=== PATIENT | female | born 1985 | race Caucasian/White ===

== ENCOUNTER 2024-11-09 14:50 | Outpatient (AMB) | payer OTHER, SELFPAY ==
[2024-11-09 15:04] VITALS: BP 148/96; PULSE 101; RESP 16; TEMP 37.2; O2SAT 97; BMI 50.0
--- NOTE | 2024-11-09 15:04 | MHC.PC.OV ---
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 ?? Prior PCP:?Connie Gómez Last office visit/CPE:? about 1 yr Acute issue(s):? HTN Lipoma L arm Hearing Rectal Prolapse ?? PMHx:? HTN, Syncope 2017 SurgHx:? Tonsils, Adenoids, TM Tubes FHx:? Mom: DM2, HTN, Renal Failure, Thyroid CA. Dad: HTN, OA SocHx: Nonsmoker, EtOH 1-2 dr 1-2 x a month. No drugs HPI Comments History of Present Illness Details Documentation assistance for Brennan Rivera MD, was provided by Nahun Cox,? Plate Maker [employer] on 11/09/2024 at 3:30 PM EST. I, Dr. Rivera, have read, observed, and verified documentation. ? 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 1. Little interest or pleasure in doing things: not at all 2. Feeling down, depressed, or hopeless: not at all 3. Trouble falling or staying asleep, or sleeping too much: not at all 4. Feeling tired or having little energy: not at all 5. Poor appetite or overeating: not at all 6. Feeling bad about yourself - or that you are a failure or have let yourself or your family down: not at all 7. Trouble concentrating on things, such as reading the newspaper or watching television: not at all 8. Moving or speaking so slowly that other people could have noticed. Or the opposite - being so fidgety or restless that you have been moving around a lot more than usual: not at all 9. Thoughts that you would be better off or of hurting yourself in some way: not at all Total score: 0 Depression Screening Interpretation: Negative Depression Screening Done: Yes 04366 - PHQ-9 Billing: Yes Source: Developed by Drs. Ehsan Garcia, Keyanna Foote, Aneudy Nolasco and colleagues, with an educational marcos from [employer]. Thrive Questionnaire I am a: Patient What is your living situation today?: I have a steady place to live Within the past 12 months, did the food you bought not last and you didn't have the money to get more?: Never true Within the past 12 months, did you worry whether your food would run out before you got money to buy more?: Never true Do you have trouble paying for medicines?: No Do you have trouble getting transportation to medical appointments?: No Do you have trouble paying your heating and electricity bill?: No Do you have trouble taking care of your child, family member or friend?: No Do you have trouble with day-to-day activities such as bathing, preparing meals, shopping, managing finances, etc.?: No Are you currently unemployed and looking for a job?: No Are you interested in more education?: No Please select the resources that you would like help with: None Currently or been in a relationship where the following occur: No concerns reported THRIVE Score: 0 AUDIT C Alcohol Use Questionnaire (AUDIT-C) 1. How often do you have a drink containing alcohol?: 2-4 times a month 2. How many drinks containing alcohol do you have on a typical day when you are drinking?: 1 or 2 3. How often do you have six or more drinks on one occasion?: Never Total Score: 2 MOOK-7 AMB Questionnaire MOOK-7 Feeling nervous, anxious, or on edge: 1 = Several days Not being able to stop or control worryin = Not at all Worrying too much about different things: 1 = Several days Trouble relaxin = Not at all Being so restless that it is hard to sit still: 0 = Not at all Becoming easily annoyed or irritable: 0 = Not at all Feeling afraid as if something awful might happen: 0 = Not at all Total MOOK-7 score (0-4 normal; 5-9 mild; 10-14 moderate; 15-21 severe): 2 Source: Developed by Drs. Ehsan Garcia, Keyanna Foote, Aneudy Nolasco and colleagues, with an educational marcos from [employer]. Review of Systems Const Denies chills, Denies fatigue, Denies fever(s), Denies headache(s) and Denies weakness ENT Denies dizziness and Denies headache(s) Card Denies chest pain, Denies lightheadedness, Denies dyspnea and Denies other (Palpitations) Resp Denies cough, Denies dyspnea, Denies wheezing and Denies other ( shortness of breath) Musc Denies numbness and Denies tingling Neuro Denies dizziness, Denies headache(s), Denies numbness, Denies tingling, Denies paresthesias and Denies weakness Psych Denies anxiety and Denies depression Endo Denies fatigue Aller/Immun Denies wheezing Physical exam (Primary Care) Vital Signs: Last Vital Signs Temp 99 F 11/09/24 15:04 Pulse 101 H 11/09/24 15:04 Resp 16 11/09/24 15:04 BP 144/86 H 11/09/24 15:17 Pulse Ox 97 11/09/24 15:04 Oxygen Delivery Method Room Air 11/09/24 15:04 BMI result Body Mass Index 50.0 Tobacco/Smoking Status: Tobacco use Status Tobacco use date assessed 11/09/24 11/09/24 15:09 Patient Tobacco Use Status Former Tobacco user (just 11/09/24 15:09 tried it in teen years) e-Cigarette/Vaping Use Never Used 11/09/24 15:09 PHQ-9: PHQ-9 Score PHQ-9: Total score 0 11/09/24 15:29 Depression Screening Interpretation: Negative Currently or been in a relationship where the following occur: No concerns reported Const General: no acute distress and well developed Nutritional Appearance: well nourished and obese morbidly obese Orientation/consciousness: patient oriented x3 HENMT Head: Yes normocephalic and Yes atraumatic Eyes General: appearance normal, both eyes and all related structures Pupils: Equal, round and reactive pupils present EOM: EOMs intact bilaterally Resp Effort & Inspection: normal respiratory effort Auscultation: clear to auscultation bilaterally Cardio Rate: regular rate Rhythm: regular rhythm Heart sounds: S1 normal heart sound present, S2 normal heart sound present, no gallops, no murmurs and no rubs Neuro General: patient oriented x3 and gait normal Cranial nerves: Yes Equal, round and reactive pupils present Extrem Other: 12 cm in diameter lipoma on her distal L upper arm Psych Affect: normal affect Coding Level of Care Code New Pt Level 3 (81286) Diagnoses Hypertension I10 Morbid obesity E66.01 Difficulty sleeping G47.9 Lipoma of arm D17.20 Change in hearing H91.90 History of syncope Z87.898 Screening for cervical cancer Z12.4 Rectal prolapse K62.3 Laboratory exam ordered as part of routine general medical examination Z00.00 Additional Codes PHQ-9 - 59254 - PHQ-9 Billing: Yes ([id number]) Assessment & Plan Assessment & Plan (1) Hypertension: Code(s): I10 - Essential (primary) hypertension Category: Medical Plan: Blood pressure is too high. Goal is less than 140/90 Increased her amlodipine from 5 mg daily to daily (2) Morbid obesity: Code(s): E66.01 - Morbid (severe) obesity due to excess calories Category: Medical Plan: Will monitor and adress at subsequent visit (3) Difficulty sleeping: Code(s): G47.9 - Sleep disorder, unspecified Category: Medical Plan: No significant symptoms consistent with sleep apnea We can follow-up on this at her next visit (4) Lipoma of arm: Code(s): D17.20 - Benign lipomatous neoplasm of skin and subcutaneous tissue of unspecified limb Category: Medical Plan: Large lipoma affecting range of motion of left arm and getting irritated Will refer to surgery (5) Change in hearing: Code(s): H91.90 - Unspecified hearing loss, unspecified ear Category: Medical Plan: Patient declines referral to audiology She will let me know if hearing worsens (6) History of syncope: Code(s): Z87.898 - Personal history of other specified conditions Category: Medical Plan: History of syncopal event in 2017. No further events Likely vasovagal She will know if anything like this occurs (7) Screening for cervical cancer: Code(s): Z12.4 - Encounter for screening for malignant neoplasm of cervix Category: Medical Plan: Referred to park interpretive ranger (8) Rectal prolapse: Code(s): K62.3 - Rectal prolapse Category: Medical Plan: Referred to GI (9) Laboratory exam ordered as part of routine general medical examination: Code(s): Z00.00 - Encounter for general adult medical examination without abnormal findings Category: Medical Plan: Check labs Orders: Orders Lipid Panel Today Z00.00 - Encounter for general adult medical examination without abnormal findings TSH reflex Free T4 Today Z00.00 - Encounter for general adult medical examination without abnormal findings Comprehensive [place]. Panel Fast Today Z00.00 - Encounter for general adult medical examination without abnormal findings Complete Blood Count Auto Diff Today Z00.00 - Encounter for general adult medical examination without abnormal findings Microalbumin, Random (w Creat) Today I10 - Essential (primary) hypertension UA CC w/rflx Micro + Cult Today Z00.00 - Encounter for general adult medical examination without abnormal findings Hemoglobin A1c Today R73.01 - Impaired fasting glucose Referrals BUILDING OPERATOR Referral Z12.4 - Encounter for screening for malignant neoplasm of cervix Colon & Rectal Referral K62.3 - Rectal prolapse General Surgery Referral D17.20 - Benign lipomatous neoplasm of skin and subcutaneous tissue of unspecified limb Medications: New amlodipine 10 mg PO DAILY 90 tabs 2RF 90 days
[2024-11-09 15:17] VITALS: BP 144/86
== END 2024-11-09 15:45 | disposition home or self-care (01) ==
LOC: HO.HMCFM 14:51
PROVIDERS: PCP Family Medicine; Visit Provider Family Medicine
DX: I10 Essential (primary) hypertension (principal); E66.01 Morbid (severe) obesity due to excess calories; Z68.43 Body mass index [BMI] 50.0-59.9, adult; G47.9 Sleep disorder, unspecified; D17.20 Benign lipomatous neoplasm of skin and subcutaneous tissue of unspecified limb; Z87.898 Personal history of other specified conditions; K62.3 Rectal prolapse

== ENCOUNTER → 2024-11-09 14:50 | Outpatient (BNVA) | payer OTHER, SELFPAY | PROVIDERS: PCP Family Medicine; Visit Provider Family Medicine | DX: Z00.00 Encounter for general adult medical examination without abnormal findings (principal); I10 Essential (primary) hypertension; E66.01 Morbid (severe) obesity due to excess calories; D17.20 Benign lipomatous neoplasm of skin and subcutaneous tissue of unspecified limb; H91.90 Unspecified hearing loss, unspecified ear; K62.3 Rectal prolapse; R73.01 Impaired fasting glucose; Z68.43 Body mass index [BMI] 50.0-59.9, adult; Z87.898 Personal history of other specified conditions | CPT/HCPCS: 96127 ==

== ENCOUNTER 2024-12-16 15:06 | Outpatient (AMB) | payer OTHER, SELFPAY ==
--- NOTE | 2024-12-16 15:08 | MHC.OFFVIS ---
Vital Signs 12/16/24 15:15 Height 5 ft 9 in Weight 353 lb BMI 52.1 BP 147/86 H Blood Pressure Location Rt radial Position Sitting Pulse 117 H Intake Visit Reasons: Large Lipoma L arm Intake Note: Patient referred by pcp Dr. Rivera for evaluation and treatment of lipoma on Left arm. Present for 2yrs. Patient c/o: enalrging, tender when pushed. Hand Touch Up Painter Required: No Accompanied by: Self / Same As Patient Allergies No Known Allergies Allergy (Verified 12/16/24 15:12) Medication List - Last Reconciled 12/16/24 by Justyn Kaur MD amlodipine 10 mg PO DAILY 90 days HPI HPI Large Lipoma L arm: Details: [age] year old female referred for a lipoma on the left arm. She says that she has noticed this for about 5 years now. This has been increasing in size. This has been bothering her a lot now because of the large size. She wants this removed. She has known hypertension morbid obesity. 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 Current occupational exposures/hazards: No Cognitive needs: No Hearing needs: No Vision needs: Yes (glasses) Review of Systems Const Denies chills and Denies fever(s) Card Denies chest pain, Denies dyspnea and Denies dyspnea on exertion Resp Denies cough, Denies dyspnea and Denies dyspnea on exertion GI Denies hematochezia and Denies change in bowel habits Denies hematuria Musc Denies back pain and Denies limited range of motion Neuro Denies focal weakness and Denies convulsions Psych Denies depression and Denies mood swings Physical Exam Vital Signs: Last Vital Signs Pulse 117 H 12/16/24 15:15 BP 147/86 H 12/16/24 15:15 BMI result Body Mass Index 52.1 Const General: comfortable and no acute distress Nutritional Appearance: obese Orientation/consciousness: patient oriented x3 Neck Neck: Yes no lymphadenopathy Resp Auscultation: clear to auscultation bilaterally Cardio Rhythm: regular rhythm GI Palpation (GI): Soft to palpation, nontender and no guarding Neuro General: patient oriented x3 Extrem Other: Left upper arm near popliteal fossa -- large lipomatous mass about 12 cm in size, well-defined, soft, with no skin changes Assessment & Plan Assessment & Plan (1) Lipoma of arm: Code(s): D17.20 - Benign lipomatous neoplasm of skin and subcutaneous tissue of unspecified limb Category: Medical Plan: She has a large lipoma on the left upper arm and she wants this removed. I explained to her that excision would be best done under anesthesia and with the of the large size. I explained the technique of excision of the large lipoma. I reviewed the risks including but not limited to bleeding, infections, poor healing, postop pain, as well as the benefits and alternatives. I explained to her what to expect postoperatively She says she understands and wants to proceed. Coding Level of Care Code New Pt Level 3 (12956) Diagnoses Lipoma of arm D17.20
[2024-12-16 15:15] VITALS: BP 147/86; PULSE 117; BMI 52.1
== END 2024-12-16 15:23 | disposition home or self-care (01) ==
LOC: HO.HGS 15:07
PROVIDERS: PCP Family Medicine; Visit Provider Surgery
DX: D17.20 Benign lipomatous neoplasm of skin and subcutaneous tissue of unspecified limb (principal)
CPT/HCPCS: 99203

== ENCOUNTER 2025-01-08 09:18 | Outpatient (REF) | payer OTHER, SELFPAY ==
[2025-01-08 11:21] LABS: MANUAL DIFF FLAG NO
[2025-01-08 11:27] LABS: Hematocrit 40.7 % (37.0-47.0); Hemoglobin 13.6 g/dl (12.0-16.0); Imm Gran Abs Auto 0.01 X10*3/uL (0.00-0.03); Imm Gran Pct Auto 0.2 % (0.0-0.4); Lymphocytes Absolute Auto 1.6 X10*3/uL (1.2-4.9); Mean Corpuscular HGB Conc 33.4 g/dl (31.0-35.0); Mean Corpuscular Hemoglobin 28.3 pg (27.0-33.0); Mean Corpuscular Volume 84.8 fL (80.0-98.0); NRBC Abs Auto 0.000 X10*3/uL (0.0-0.012); NRBC Pct Auto 0.0 /100WBC (0.0-0.2); Platelet Count 332 X10*3/uL (160-400); Red Blood Count 4.80 X10*6/uL (4.20-5.50); White Blood Count 6.5 X10*3/uL (4.8-10.8)
[2025-01-08 11:37] LABS: Hemoglobin A1C 131.3765 umol/L; Total Hemoglobin (HGBA1C) 3587.5110 umol/L
[2025-01-08 11:52] LABS: Alanine Aminotransferase 22 U/L (0-31); Albumin Level 4.3 g/dL (3.5-5.0); Alkaline Phosphatase 94 U/L (39-117); Anion Gap 8 (12-20); Aspartate Amino Transferase 25 U/L (5-31); Blood Urea Nitrogen 14 mg/dL (9-16); Calcium 9.0 mg/dL (8.4-10.2); Carbon Dioxide 27 mmol/L (22-29); Chloride 108 mmol/L (96-108); Cholesterol 135 mg/dL (<200); Estimated Glomerular Filt Rate > 60; HDL Cholesterol 43 mg/dL (>40); Potassium 3.7 mmol/L (3.3-5.1); Sodium 139 mmol/L (135-145); Total Protein 7.2 g/dL (6.5-8.0); Triglycerides 71 mg/dL (<150)
[2025-01-08 14:38] LABS: Appearance Urine Clear; Glucose Urine UA Negative (Negative); PH 5.5 (5.0-9.0); Specific Gravity - Urine 1.025 (1.005-1.025); UMIC TRIGGER UACC YES
[2025-01-08 15:14] LABS: Microalbum/Creatinine Ratio Ur 7.1 ug/mg cr (<30)
== END 2025-01-08 09:19 | disposition home or self-care (01) ==
LOC: HO.WFDLDS 09:18
PROVIDERS: Visit Provider Family Medicine
DX: Z00.00 Encounter for general adult medical examination without abnormal findings (principal); I10 Essential (primary) hypertension; R73.01 Impaired fasting glucose
CPT/HCPCS: 36415; 80053; 80061; 81001; 82043; 82570; 83036; 84443; 85025

== ENCOUNTER 2025-02-12 06:49 | Day surgery (SDC) | payer OTHER, SELFPAY ==
[2025-02-10 07:47] VITALS: BMI 52.1
--- NOTE | 2025-02-10 09:49 | HO.ANESPROP2 ---
Documented by User: Judy Zaman NP 02/10/25 09:50 HPI - Anesthesia Eval Consult details Narrative: 39yo F for Left Excision of Large Lipoma on Arm BMI 52 PMFSH Active Problems Active Problems: All Active Problems Rectal prolapse (Acute) Screening for cervical cancer (Acute) History of syncope (Acute) Change in hearing (Acute) Lipoma of arm (Acute) Difficulty sleeping (Acute) Laboratory exam ordered as part of routine general medical examination (Acute) Morbid obesity (Acute) Hypertension (Acute) Past Medical History Medical History Morbid obesity Hypertension Family History Family History Mother Thyroid ca Maternal Grandfather Prostate CA Surgical History Surgical History History of placement of ear tubes Hx of adenoidectomy Hx of tonsillectomy Social History Social History Housing: House Patient Tobacco Use Status: Former Tobacco user e-Cigarette/Vaping Use: Never Used Second Hand Smoke Exposure: No Have you been hit, kicked, punched, or otherwise hurt by someone within the past year? 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 Current occupational exposures/hazards: No Cognitive needs: No Hearing needs: No Vision needs: Yes (glasses) Meds Allergies Allergy/AdvReac Type Severity Reaction Status Date / Time No Known Allergies Allergy Verified 12/16/24 15:12 Exam Height,Weight and Vital Signs: Height 5 ft 9 in Weight 160.118 kg Pertinent Lab Results Pertinent Lab Results: Laboratory Tests 01/08/25 01/08/25 09:20 09:28 WBC 6.5 Hgb 13.6 Hct 40.7 Plt Count 332 Sodium 139 Potassium 3.7 Chloride 108 Carbon Dioxide 27 BUN 14 Creatinine 0.77 Assessment and Plan Assessment Anesthesia Assessment: Chart Reviewed Documented by User: Mary Castro MD 02/12/25 07:57 PMFSH Past Medical History Medical History Morbid obesity Hypertension Family History Family History Mother Thyroid ca Maternal Grandfather Prostate CA Surgical History Surgical History History of placement of ear tubes Hx of adenoidectomy Hx of tonsillectomy History of Problems with Anesthesia: No Social History Social History Housing: House Patient Tobacco Use Status: Former Tobacco user e-Cigarette/Vaping Use: Never Used Second Hand Smoke Exposure: No Have you been hit, kicked, punched, or otherwise hurt by someone within the past year? 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 Current occupational exposures/hazards: No Cognitive needs: No Hearing needs: No Vision needs: Yes (glasses) Meds Allergies Allergy/AdvReac Type Severity Reaction Status Date / Time No Known Allergies Allergy Verified 12/16/24 15:12 Exam Airway Mallampati Class: II TM Dist: >3cm Neck ROM: Full Loose/Missing/Broken Teeth: No Heart: RRR Lungs: CTA Assessment and Plan Assessment Anesthesia Assessment: Anesthesia Plan Discussed Final Anesthetic Review History of Problems with Anesthesia: No NPO: Yes ASA Class: III Final Preanesthetic Review: Meds/Allgs Chart Reviewed, Consent Obtained/Reviewed and Anes Risks/Benef Reviewed Patient Risk: Intermediate Procedure Risk: Low Anesthetic Plan Anesthetic Plan: MAC: Disposition: Standard PACU
[2025-02-12 06:53] VITALS: BP 171/94; PULSE 94; RESP 18; TEMP 36.4; O2SAT 96; BMI 50.9
[2025-02-12 07:15] LABS: UPreg QC Valid YES
[2025-02-12] MEDS: Lactated Ringers 1,000 ML 100 ML IVCONT (07:17)
--- NOTE | 2025-02-12 08:06 | MHC.SHP ---
Pre-Procedural Eval Section A - 24 Hr Update-Section A only Date of Service: 02/12/25 Section B - Complete if H&P > 30 days Chief Complaint: Benign lipomatous neoplasm of skin and subcutaneou Details of Present Illness: Has a large lipoma of the left upper arm Relevant Social History: None Present Medications: see Short Stay Collaborative assessment Medical History: Significant History (Obesity, hypertension) Allergies: Allergies Allergy/AdvReac Type Severity Reaction Status Date / Time No Known Allergies Allergy Verified 12/16/24 15:12 Review of Systems Sugical H&P ROS: Negative: Constitution, Cardiovascular and Respiratory Exam Surgical H&P Exam: Normal: Heart, Normal: Lungs and Normal: Abdomen and Significant Findings: Extremities (Large lipoma left upper arm) Plan Diagnosis/Plan: Unchanged I have reviewed the history and physical and performed a pertinent physical examination on my patient. No changes have occurred unless specified. Time Spent With Patient Time: Total time managing care of this patient today ____ minutes.
--- NOTE | 2025-02-12 08:57 | W.PM.OPN ---
Operative Note Operative Note Date of Service: 02/12/25 Narrative: Preop diagnosis: Large lipoma, left upper arm Postop diagnosis: The same Procedure: Excision of large lipoma left upper arm under anesthesia Surgeon: Justyn Kaur MD title i assistant: GURINDER Copeland The patient is a 39-year-old female with note of a large lipoma of the left upper arm just proximal to the antecubital fossa. She understood the technique of the planned procedure as well as the risks, benefits, and alternatives. She was brought to the operating room placed supine with the left arm abducted under monitored anesthesia care. The left upper arm was prepped and draped in the usual sterile fashion. A surgical time-out was done. The patient received cefazolin 2 g IV preoperatively. Lidocaine 1 % was used for local anesthesia. I made a transverse incision in the skin overlying the lipoma with a blade 15. This was carried down through the full-thickness of the skin and subcutaneous fat with electrocautery until was able to visualize the lipoma. I sharply dissected the lipomatous fat off of the surrounding subcutaneous layer with electrocautery as well as Metzenbaum scissors until I was able to deliver this. I cauterized oozing areas The lipoma measured 11 cm by 7 cm. I irrigated the area of excision. I used electrocautery to achieve hemostasis. Once hemostasis was confirmed, I reapposed the subdermal layer and subcutaneous layer with Polysorb 3-0 simple interrupted sutures. Skin closure was achieved with Polysorb 4-0 subcuticular running stitch. The area was infiltrated with Marcaine 0.5% for postop analgesia. Dressings were applied and the procedure was completed . The patient tolerated procedure well. There were no immediate complications. Initial and final counts of sponges and instruments were correct. Estimated blood loss was does not 25 cc. The patient was extubated without difficulty and transferred to the recovery room with stable vital signs.
[2025-02-12 09:10] VITALS: BP 109/62; PULSE 88; RESP 19; TEMP 37.3; O2SAT 97
[2025-02-12 09:25] VITALS: BP 126/88; PULSE 75; RESP 22; TEMP 37.2; O2SAT 97
== END 2025-02-12 10:09 | disposition home or self-care (01) ==
PROVIDERS: Nurse Practitioner; PCP Family Medicine; Visit Provider Surgery
PROC: (CPT 24071; principal; 2025-02-12 09:00)
DX: D17.22 Benign lipomatous neoplasm of skin and subcutaneous tissue of left arm (principal); I10 Essential (primary) hypertension; E66.01 Morbid (severe) obesity due to excess calories; Z68.43 Body mass index [BMI] 50.0-59.9, adult; Z79.899 Other long term (current) drug therapy; Z98.890 Other specified postprocedural states; Z87.891 Personal history of nicotine dependence
CPT/HCPCS: 24071; 81025; 88304; J0131; J0690; J1885; J2003; J2250; J2704; J2795; J3010

== ENCOUNTER → 2025-02-12 06:49 | Outpatient (BNV) | payer OTHER, SELFPAY | PROVIDERS: PCP Family Medicine; Visit Provider Surgery | DX: D17.22 Benign lipomatous neoplasm of skin and subcutaneous tissue of left arm (principal) | CPT/HCPCS: 24071 ==

== ENCOUNTER 2025-02-26 09:42 | Outpatient (AMB) | payer OTHER, SELFPAY ==
--- NOTE | 2025-02-26 09:46 | AM.OFFVISNUR ---
Intake Visit Reasons: s/p excison large lipoma left arm Putter In Required: No Allergies No Known Allergies Allergy (Verified 02/26/25 10:19) Nursing Note Pt reports for suture removal. Upon arrival, steri strips present but no external sutures present. Steri-strips removed, incision is well healed, no redness, no swelling, no drainage, edges well approx. and closed. Pt advised of benign pathology and she knows she can call if she has any questions or develops more lipomas in the future. Coding Level of Care Code Established Pt Est Pt Level 1 (62954) Patient Type Established History Problem Focused Exam Problem Focused Medical Decision Making Straight Forward Time Spent (min) 10 Comment wound teaching, wound assessment
== END 2025-02-26 10:18 | disposition home or self-care (01) ==
LOC: HO.HGS 09:43
PROVIDERS: PCP Family Medicine; Visit Provider Surgery
DX: D17.20 Benign lipomatous neoplasm of skin and subcutaneous tissue of unspecified limb (principal)

== ENCOUNTER → 2025-02-26 09:42 | Outpatient (BNVA) | payer OTHER, SELFPAY | PROVIDERS: PCP Family Medicine; Visit Provider Surgery | DX: Z48.817 Encounter for surgical aftercare following surgery on the skin and subcutaneous tissue (principal); Z87.39 Personal history of other diseases of the musculoskeletal system and connective tissue; Z13.31 Encounter for screening for depression; Z13.39 Encounter for screening examination for other mental health and behavioral disorders | CPT/HCPCS: 96127; 99211 ==

== ENCOUNTER 2025-02-26 10:46 | Outpatient (AMB) | payer OTHER, SELFPAY ==
--- NOTE | 2025-02-26 11:56 | A.OFFPC_ITS ---
Vital Signs 02/26/25 12:09 02/26/25 12:16 Height 5 ft 9.69 in Weight 347 lb 2 oz BMI 50.2 BP 144/80 H 132/80 Blood Pressure Location Rt brachial Rt brachial Position Sitting Sitting Respiration 18 Pulse 107 H 91 Pulse Source Pulse Oximeter Pulse Oximeter Temp 98.4 F Temp Source Oral Pulse Oximetry (%) 97 Oxygen Delivery Method Room Air Intake Visit Reasons: CPE r/s from 02/08 Intake Note: patient is scheduled for a cpe labs have been completed [employer] Lacrosse [employer] Required: No Is last menstrual period known: No (iud) Post menopausal: No Patient : No Allergies No Known Allergies Allergy (Verified 02/26/25 12:02) Medication List - Last Reconciled 02/26/25 by Brennan Rivera MD amlodipine 10 mg PO DAILY 90 days Tobacco use date assessed: 02/26/25 Dental Screening Dental Screen Date: 02/26/25 Did you have a dental visit in the last 12 months?: No Did you have a dental problem in the last 6 months where you did not have access to dental care?: Yes Was dental information given to patient?: No HPI CPE r/s from 02/08 HPI Details 39 y/o female presents for a CPE with f/ u labs, health maint. Labs drawn 01/08/25. Reviewed labs with pt. Triglycerides 71. TC 135. LDL 78. HDL 43. A1c 5.5%. BP today 132/80, 91p. She is on amlodipine 10mg daily. Complaints of plantar fasciitis. 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 1. Little interest or pleasure in doing things: not at all 2. Feeling down, depressed, or hopeless: not at all 3. Trouble falling or staying asleep, or sleeping too much: several days 4. Feeling tired or having little energy: several days 5. Poor appetite or overeating: not at all 6. Feeling bad about yourself - or that you are a failure or have let yourself or your family down: not at all 7. Trouble concentrating on things, such as reading the newspaper or watching television: not at all 8. Moving or speaking so slowly that other people could have noticed. Or the opposite - being so fidgety or restless that you have been moving around a lot more than usual: not at all 9. Thoughts that you would be better off or of hurting yourself in some way: not at all Total score: 2 Depression Screening Interpretation: Negative Depression Screening Done: Yes [id number] - PHQ-9 Billing: Yes Source: Developed by Drs. Ehsan Garcia, Keyanna Foote, Aneudy Nolasco and colleagues, with an educational marcos from [employer]. Thrive Questionnaire Date Thrive assessed: 02/26/25 I am a: Patient What is your living situation today?: I have a steady place to live Within the past 12 months, did the food you bought not last and you didn't have the money to get more?: Never true Within the past 12 months, did you worry whether your food would run out before you got money to buy more?: Never true Do you have trouble paying for medicines?: No Do you have trouble getting transportation to medical appointments?: No Do you have trouble paying your heating and electricity bill?: No Do you have trouble taking care of your child, family member or friend?: No Do you have trouble with day-to-day activities such as bathing, preparing meals, shopping, managing finances, etc.?: No Are you currently unemployed and looking for a job?: No Are you interested in more education?: No Please select the resources that you would like help with: None Currently or been in a relationship where the following occur: No concerns reported THRIVE Score: 0 MOOK-7 AMB Questionnaire MOOK-7 Date MOOK - 7 assessed: 02/26/25 Feeling nervous, anxious, or on edge: 0 = Not at all Not being able to stop or control worryin = Not at all Worrying too much about different things: 0 = Not at all Trouble relaxin = Not at all Being so restless that it is hard to sit still: 0 = Not at all Becoming easily annoyed or irritable: 0 = Not at all Feeling afraid as if something awful might happen: 0 = Not at all Total MOOK-7 score (0-4 normal; 5-9 mild; 10-14 moderate; 15-21 severe): 0 Source: Developed by Drs. Ehsan Garcia, Keyanna Foote, Aneudy Nolasco and colleagues, with an educational marcos from [employer]. Review of Systems Const Denies chills, Denies fatigue, Denies fever(s), Denies headache(s) and Denies weakness Eyes Denies change in vision ENT Denies dizziness, Denies headache(s), Denies hearing loss, Denies nasal congestion, Denies sinus pain, Denies sinus pressure and Denies sore throat Card Denies chest pain, Denies lightheadedness, Denies dyspnea and Denies other (palpitations) Resp Denies cough, Denies dyspnea and Denies wheezing GI Denies abdominal pain, Denies melena, Denies hematochezia, Denies change in bowel habits, Denies dyspepsia and Denies nausea Denies hematuria and Denies dysuria Musc Denies abnormal gait, Denies myalgias, Denies arthralgias, Denies numbness and Denies tingling Skin/Breast Denies rash, Denies unusual bruising and Denies wounds Neuro Denies abnormal gait, Denies dizziness, Denies headache(s), Denies memory loss, Denies numbness, Denies Sensory deficit (Neuro), Denies tingling and Denies weakness Psych Denies anxiety, Denies depression and Denies memory loss Endo Denies cold intolerance, Denies fatigue, Denies heat intolerance, Denies polydipsia and Denies polyuria Nikolas/Lymph Denies easy bleeding and Denies easy bruising Aller/Immun Denies wheezing Physical exam (Primary Care) Vital Signs: Last Vital Signs Temp 98.4 F 02/26/25 12:09 Pulse 91 02/26/25 12:16 Resp 18 02/26/25 12:09 BP 132/80 02/26/25 12:16 Pulse Ox 97 02/26/25 12:09 Oxygen Delivery Method Room Air 02/26/25 12:09 BMI result Body Mass Index 50.2 Tobacco/Smoking Status: Tobacco use Status Tobacco use date assessed 02/26/25 02/26/25 12:16 Patient Tobacco Use Status Former Tobacco user 02/26/25 11:59 e-Cigarette/Vaping Use Never Used 02/26/25 11:59 PHQ-9: PHQ-9 Score PHQ-9: Total score 2 02/26/25 12:16 Depression Screening Interpretation: Negative Thrive Assessment: Date of Thrive Assessment Date Thrive assessed 02/26/25 02/26/25 12:16 Currently or been in a relationship where the following occur: No concerns reported Const General: no acute distress, well developed, alert and awake Nutritional Appearance: well nourished and obese morbidly obese Orientation/consciousness: patient oriented x3 HENMT Head: Yes normocephalic and Yes atraumatic Ears: hearing grossly normal bilaterally and TM's normal bilaterally General nose exam: Normal external nose present and Normal nares present Mouth: Normal oral and palatal mucosa present and moist mucous membranes Teeth and gingiva: dentition normal Throat: Yes posterior oropharynx normal Eyes General: appearance normal, both eyes and all related structures Pupils: Equal, round and reactive pupils present and Pupil accommodation reflex normal EOM: EOMs intact bilaterally Neck Neck: Yes normal visual inspection, Yes no lymphadenopathy and Yes trachea midline Thyroid: Thyroid normal Carotids: no bruits Lymphatic: no lymphadenopathy noted Chest Chest palpation & inspection: normal inspection of the chest Resp Effort & Inspection: normal respiratory effort Auscultation: clear to auscultation bilaterally Cardio Rate: regular rate Rhythm: regular rhythm Heart sounds: S1 normal heart sound present, S2 normal heart sound present, no gallops, no murmurs and no rubs Bruits: no abdominal aortic bruits and no carotid bruits GI Palpation (GI): No Abdominal aortic bruit present, Soft to palpation, nontender, No hepatosplenomegaly present and No Rebound tenderness present Auscultation: normal bowel sounds General: Yes no CVA tenderness Back/Spine/Pelvis Back: no CVA tenderness Cervical Spine: cervical ROM normal and No Cervical spine tenderness Thoracic/Lumbar Spine: thoraco-lumbar ROM normal, No pain with thoraco-lumbar ROM, No thoracic spinal tenderness and No lumbar spinal tenderness Skin Lesions: no lesions Rashes: no rashes Trauma: no lacerations or abrasions Wounds: no wounds Nails: normal Neuro General: patient oriented x3 Cranial nerves: Yes Equal, round and reactive pupils present Cognition (Neuro): normal cognition Gait exam (Neuro): Normal gait present Motor exam (neuro): 5/5 motor strength present throughout Sensory Exam: No Sensory deficit (Neuro) Deep tendon reflexes (DTR's): Right patellar reflex intensity grade: 2+ and Left patellar reflex intensity grade: 2+ Extrem General: Yes normal to inspection and No edema Psych Appearance: grossly normal Affect: normal affect Attitude: cooperative Thought process: Normal thought process present Coding Level of Care Code Est Pt Level 3 (78261) Est Pt Prev Care 18-39y([id number]) Diagnoses Adult general medical exam Z00.00 Hypertension I10 GERD (gastroesophageal reflux disease) K21.9 Constipation K59.00 Plantar fasciitis M72.2 Morbid obesity E66.01 Screening for cervical cancer Z12.4 Additional Codes PHQ-9 - 04178 - PHQ-9 Billing: Yes ([id number]) Assessment & Plan Assessment & Plan (1) Adult general medical exam: Code(s): Z00.00 - Encounter for general adult medical examination without abnormal findings Category: Medical Plan: 31-year-old female presents for complete physical exam (2) Hypertension: Code(s): I10 - Essential (primary) hypertension Category: Medical Plan: Blood pressure is high on presentation and returns to controlled range with relaxation. Goal is less than 140/90 Continue current medication Will give her a blood pressure monitor for home and she can let me know if blood pressures are high more often than not. (3) GERD (gastroesophageal reflux disease): Code(s): K21.9 - Gastro-esophageal reflux disease without esophagitis Category: Medical Plan: Intermittent symptoms. Avoid triggers and anticipate symptoms. Can use OTC Pepcid as needed (4) Constipation: Code(s): K59.00 - Constipation, unspecified Category: Medical Plan: Hydrate well Can try soluble fiber (5) Plantar fasciitis: Code(s): M72.2 - Plantar fascial fibromatosis Category: Medical Plan: Demonstrated stretches Ibuprofen and ice He will risers She will let know if not improving. Would refer to podiatry (6) Morbid obesity: Code(s): E66.01 - Morbid (severe) obesity due to excess calories Category: Medical Plan: Patient is interested in GLP 1 medication. She will contact her insurance to discuss. Also briefly mentioned the medical weight management program. We can readdress this at a subsequent visit (7) Screening for cervical cancer: Code(s): Z12.4 - Encounter for screening for malignant neoplasm of cervix Category: Medical Plan: Has appointment with operations research manager for screening Orders: Referrals Sleep Medicine Referral G47.30 - Sleep apnea, unspecified Medications: New blood pressure monitor Automatic, Digital. Dx: I10. Daily As directed, 999 days/lifetime 1 ea 0RF I10 - Essential (primary) hypertension blood pressure monitor Automatic, Digital. Dx: I10. Daily As directed, 999 days/lifetime 1 ea 0RF I10 - Essential (primary) hypertension Refilled amlodipine 10 mg PO DAILY 90 tabs 2RF 90 days
[2025-02-26 12:09] VITALS: BP 144/80; PULSE 107; RESP 18; TEMP 36.9; O2SAT 97; BMI 50.2
[2025-02-26 12:16] VITALS: BP 132/80; PULSE 91
== END 2025-02-26 12:49 | disposition home or self-care (01) ==
LOC: HO.HMCFM 10:47
PROVIDERS: PCP Family Medicine; Visit Provider Family Medicine
DX: Z00.00 Encounter for general adult medical examination without abnormal findings (principal); I10 Essential (primary) hypertension; E66.01 Morbid (severe) obesity due to excess calories; Z68.43 Body mass index [BMI] 50.0-59.9, adult; K21.9 Gastro-esophageal reflux disease without esophagitis; K59.00 Constipation, unspecified; M72.2 Plantar fascial fibromatosis; Z12.4 Encounter for screening for malignant neoplasm of cervix